=== PATIENT | female | born 1970 | race Caucasian/White ===

== ENCOUNTER 2025-09-21 16:39 | Inpatient (IN) | payer OTHER ==
[~2025-09-21] VITALS: Ht 157.5 cm; Wt 74.8 kg
[2025-09-21 16:42] VITALS: O2SAT 98
[2025-09-21 17:25] LABS: BASOPHILS % 0.7 % (0.0-2.0); EOSINOPHILS % 4.4 % (0.0-5.0); HEMATOCRIT. 36.2 % (36.0-48.0); HEMOGLOBIN. 12.0 g/dL (12.0-16.0); LYMPHOCYTES % 25.7 % (20.0-50.0); MEAN PLATELET VOLUME 9.2 fl (7.4-10.4); MONOCYTES % 4.2 % (2.0-8.0); NEUTROPHILS % 65.0 % (40.0-76.0); PLATELET 232 x1000/uL (130-400); RED BLOOD CELL COUNT 4.36 mill/uL (4.2-5.4); RED CELL DISTRIBUTION WIDTH 13.8 % (11.6-14.6)
[2025-09-21] MEDS: METOCLOPRAMIDE HCL 10MG/2ML VIAL IV ONE (17:32)
[2025-09-21] MEDS: KETOROLAC 30MG/ML VIAL IV ONE (17:32)
[2025-09-21] MEDS: DIPHENHYDRAMINE 50MG/ML VIAL IV ONE (17:32)
[2025-09-21 17:35] LABS: INR 1.0
[2025-09-21 17:41] LABS: CREATININE 0.7 mg/dL (0.6-1.0); TROPONIN I HIGH SENSITIVITY 7 ng/L (3.0-34); UREA NITROGEN BLOOD 9 mg/dL (9-23)
[2025-09-21 17:42] LABS: ETHANOL BLOOD < 10 mg/dL (<10); PROTEIN TOTAL 7.6 g/dL (6.0-8.3)
[2025-09-21 17:43] LABS: ASPARTATE AMINOTRANSFERASE 41 IU/L (<34); BILIRUBIN DIRECT < 0.1 mg/dL (<=3.0); BILIRUBIN TOTAL 0.4 mg/dL (0.1-1.0)
[2025-09-21 20:00] VITALS: BP_SYST 143; BP_SYST 173; BP_DIAS 85; PULSE 89; RESP 18; TEMP 36.4; TEMP 36.4736; O2SAT 97
[2025-09-21] MEDS ORDERED: HYDR12.54 PO (21:26)
[2025-09-21] MEDS ORDERED: AMLO5TAB88 PO (21:26)
[2025-09-21] MEDS ORDERED: ASPI-1497 PO (21:26)
[2025-09-21] MEDS ORDERED: VALS160T28 PO (21:26)
[2025-09-21] MEDS ORDERED: NON FORMULARY MED XX SCH (23:30)
[2025-09-21] MEDS ORDERED: IOHEXOL-350 100 ML BOTTLE ONE (23:31)
[2025-09-21] MEDS: LOSARTAN 100 MG TABLET PO SCH (23:47)
[2025-09-21] MEDS: ASPIRIN 81MG TABLET PO SCH (23:47)
[2025-09-21] MEDS: AMLODIPINE 5MG TABLET PO SCH (23:47)
[2025-09-21] MEDS: HYDROCHLOROTHIAZIDE 12.5MG CAPSULE PO SCH (23:47)
[2025-09-22] VITALS: BP 122/75; PULSE 87; RESP 18; TEMP 36.2; O2SAT 98
[2025-09-22 04:00] VITALS: BP 117/68; PULSE 73; RESP 18; TEMP 36.2; O2SAT 97
[2025-09-22 07:00] LABS: BASOPHILS % 0.8 % (0.0-2.0); EOSINOPHILS % 4.3 % (0.0-5.0); HEMATOCRIT. 36.9 % (36.0-48.0); HEMOGLOBIN. 12.1 g/dL (12.0-16.0); LYMPHOCYTES % 30.2 % (20.0-50.0); MONOCYTES % 5.7 % (2.0-8.0); NEUTROPHILS % 59.0 % (40.0-76.0); RED BLOOD CELL COUNT 4.46 mill/uL (4.2-5.4); RED CELL DISTRIBUTION WIDTH 13.3 % (11.6-14.6)
[2025-09-22] MEDS ORDERED: ONDANSETRON HCL 4MG/2ML INJ IV PRN (07:15)
[2025-09-22 07:48] LABS: CREATININE 0.6 mg/dL (0.6-1.0); TRIGLYCERIDE 129 mg/dL (0-150); UREA NITROGEN BLOOD 10 mg/dL (9-23)
[2025-09-22 07:49] LABS: LDL CHOLESTEROL 120 mg/dL (5-100)
[2025-09-22 08:00] VITALS: BP 141/81; PULSE 74; RESP 18; TEMP 36.8; O2SAT 97
[2025-09-22] MEDS: PANTOPRAZOLE SODIUM 40 MG/VIAL IV SCH (08:57)
[2025-09-22] MEDS: CLOPIDOGREL 75MG TABLET PO SCH (08:57)
[2025-09-22] MEDS: ASPIRIN 81MG TABLET PO SCH (08:58)
[2025-09-22 12:00] VITALS: BP 123/82; PULSE 79; RESP 18; TEMP 36.5; O2SAT 97
[2025-09-22 16:00] VITALS: BP 141/86; PULSE 87; RESP 18; TEMP 36.7; O2SAT 96
[2025-09-22] MEDS: CEFTRIAXONE 1GM/50ML 50 ML IV SCH (17:45)
[2025-09-22 20:00] VITALS: BP 122/82; PULSE 83; RESP 20; TEMP 36.7; O2SAT 96
[2025-09-22] MEDS: ATORVASTATIN CALCIUM 40MG TABLET PO SCH (21:12)
[2025-09-23] VITALS: BP 128/76; PULSE 79; RESP 18; TEMP 36.6; O2SAT 96
[2025-09-23] MEDS: ACETAMINOPHEN 325MG TABLET PO PRN (01:11)
[2025-09-23 08:00] VITALS: BP 126/84; PULSE 75; RESP 18; TEMP 36.5; O2SAT 98
[2025-09-23 08:58] LABS: BASOPHILS % 0.8 % (0.0-2.0); EOSINOPHILS % 7.1 % (0.0-5.0); HEMATOCRIT. 38.8 % (36.0-48.0); HEMOGLOBIN. 12.9 g/dL (12.0-16.0); LYMPHOCYTES % 27.6 % (20.0-50.0); MONOCYTES % 4.7 % (2.0-8.0); NEUTROPHILS % 59.8 % (40.0-76.0); RED BLOOD CELL COUNT 4.69 mill/uL (4.2-5.4); RED CELL DISTRIBUTION WIDTH 13.1 % (11.6-14.6)
[2025-09-23 09:18] LABS: CREATININE 0.7 mg/dL (0.6-1.0); UREA NITROGEN BLOOD 11 mg/dL (9-23)
[2025-09-23 12:00] VITALS: BP 135/84; PULSE 81; RESP 18; TEMP 36.4; O2SAT 96
[2025-09-23] MEDS ORDERED: ASPI-1497 PO (14:40)
[2025-09-23] MEDS ORDERED: ATOR40TA70 MT (14:40)
[2025-09-23] MEDS ORDERED: CLOP-31 MT (14:40)
[2025-09-23 15:05] VITALS: BP 134/84; PULSE 81; RESP 17; TEMP 97.6
[2025-09-24 02:00] LABS: MEAN PLATELET VOLUME 9.0 fl (7.4-10.4)
[2025-09-24 02:02] LABS: PLATELET 158 x1000/uL (130-400)
[2025-09-24] MEDS ORDERED: FAMOTIDINE 20MG TABLET PO SCH (09:00)
== END 2025-09-23 16:00 | disposition home or self-care (01) | DRG 305 ==
LOC: ER 16:39 → EDBEDREQTM 17:50 → EDBEDREQ 17:50 → 8WST 18:50
PROVIDERS: ADMIT Internal Medicine; ATTEND Internal Medicine
DX: I16.1 Hypertensive emergency (principal); E66.9 Obesity, unspecified; J01.90 Acute sinusitis, unspecified; I10 Essential (primary) hypertension; R29.810 Facial weakness; Z68.30 Body mass index [BMI] 30.0-30.9, adult; Z79.82 Long term (current) use of aspirin; Z86.73 Personal history of transient ischemic attack (TIA), and cerebral infarction without residual deficits
CPT/HCPCS: 36415; 70496; 70498; 70551; 71045; 80048; 80061; 80076; 80320; 84484; 85025; 93005; 93306; 93970; 97162; 99291; J0696; J1200; J1885; J2470; J2765; Q9967; G0480